=== PATIENT | male | born 1945 | race Hispanic/Latino ===

== ENCOUNTER 2018-09-14 08:21 | Emergency (ER) | payer MEDICARE, BC ==
[~2018-09-14] VITALS: Ht 165.1 cm; Wt 74.4 kg
--- OUTSIDE RECORDS SUMMARY | 2018-09-14 08:24 | XMS REPORT | Continuity of Care Document ---
Author Author [facility] magy [facility] Emergency Department Interface Address Unknown Phone Unavailable Problems Problem Status Onset Date Classification Date Reported Comments Source Chronic kidney disease, stage 3 10/05/2017 08/22/2018 [facility] [place] N18.3 - CHRONIC KIDNEY DISEASE, STAGE Active 09/28/2017 [facility] [place] Medications Medication Details Route Status Patient Instructions Ordering Provider Order Date Source Allergies, Adverse Reactions, Alerts Substance Category Reaction Severity Reaction type Status Date Reported Comments Source Immunizations Immunization Date Given Site Status Last Updated Comments Source Results Order Name Results Value Reference Range Date Interpretation Comments Source Retroperitoneal Complete US Retroperitoneal Complete US Exam: Bilateral renal ultrasound. Reason for Exam: N18.3 Chronic kidney disease, stage 3 (moderate) - N18.3 Chronic kidney disease, stage 3 (moderate) Comparison Exam: None Discussion: Multiplanar grayscale and color Doppler ultrasound of the kidneys, aorta, IVC, and urinary bladder. Right kidney: Size: 10.1 x 5.1 x 4.6 cm. Cortical thickness measures 1.4 cm. Hydronephrosis: None. Echogenicity: Unremarkable Calculi/Cysts/Masses: None. Left kidney: Size: 9.8 x 5.4 x 4.6 cm. Cortical thickness measures 1.2 cm. Hydronephrosis: None. Echogenicity: Unremarkable Calculi/Cysts/Masses: None. Abdominal aorta/Iliac arteries: Visualized portions are unremarkable. Inferior vena cava: Visualized portions are unremarkable Bladder: Unremarkable. Bilateral ureteral jets are identified. IMPRESSION: 1. Unremarkable renal ultrasound. 09/28/2017 - - Read by: Franco Herman MD Dictated Date/time: 09/28/17 15:18 Electronically Signed by: Franco Herman MD 09/28/17 15:28 FINAL REPORT [facility] [place] Vital Signs Vital Sign Value Date Comments Source Encounters Location Location Details Encounter Type Encounter Number Reason For Visit Attending Provider ADM Date DC Date Status Source [facility] Outpatient Imaging - [facility] Out[facility] Services [id number] Milind Rodriguez 09/28/2017 09/29/2017 RADHA Wayne Procedures Procedure Code Date Perfomer Comments Source
--- OUTSIDE RECORDS SUMMARY | 2018-09-14 08:24 | XMS REPORT ---
Author Author [facility] Address Unknown Phone Unavailable Care Team Providers Care Pattern Vault Clerk Name Role Phone Unavailable Unavailable Payers Payer Name Policy Type Policy Number Effective Date Expiration Date Problems This patient has no known problems. Allergies, Adverse Reactions, Alerts Allergy Name Allergy Type Status Severity Reaction(s) Onset Date Inactive Date Treating Clinician Comments No Known Allergies DA Active U 2015-10-09 00:00:00 Medications This patient has no known medications.
--- OUTSIDE RECORDS SUMMARY | 2018-09-14 08:24 | XMS REPORT | Summary of Care ---
Author Author [facility] [place] Organization [facility] [place] Address Unknown Phone Unavailable Encounter HQ Encntr_alias(FIN) [id number] Date(s): 09/28/17 - 09/28/17 [facility] [place] [address] [place], [place] [address] [phone] Encounter Diagnosis Chronic kidney disease, stage 3 (moderate) (Final) - 10/04/17 Discharge Disposition: Home or Self Care Attending Physician: Milind Rodriguez MD Vital Signs No data available for this section Problem List No data available for this section Allergies, Adverse Reactions, Alerts No data available for this section Medications No data available for this section Results No data available for this section Immunizations No data available for this section Procedures No data available for this section Social History No data available for this section Assessment and Plan No data available for this section
--- OUTSIDE RECORDS SUMMARY | 2018-09-14 08:24 | XMS REPORT | Summary of Care ---
Author Author [facility] [place] Organization [facility] [place] Address Unknown Phone Unavailable Encounter HQ Encntr_alias(FIN) [id number] Date(s): 09/28/17 - 09/28/17 [facility] [place] [address] [place], [place] [address] [phone] Encounter Diagnosis Chronic kidney disease, stage 3 [...]
[2018-09-14] MEDS ORDERED: ATORVASTATIN CA20 MG PO (08:37)
[2018-09-14] MEDS ORDERED: LOSARTAN PO (08:37)
[2018-09-14] MEDS ORDERED: CLOPIDOGREL75 MG PO (08:37)
[2018-09-14] MEDS ORDERED: ATENOLOL50 MG PO (08:37)
[2018-09-14] MEDS ORDERED: ASPRIN PO (08:37)
[2018-09-14] MEDS ORDERED: LEVOTHYROXINE50 MCG PO (08:37)
[2018-09-14 08:59] LABS: CLARITY,URINE HAZY (CLEAR); COLOR,URINE YELLOW (YELLOW)
[2018-09-14 09:00] LABS: KETONES,URINE NEGATIVE (NEGATIVE); LEUKOCYTE ESTERASE ,URINE 1+ (NEGATIVE); NITRITE,URINE NEGATIVE (NEGATIVE); PROTEIN,URINE DIPSTICK TRACE (NEGATIVE); URINE UROBILINOGEN 0.2 mg/dL (0.2 - 1)
[2018-09-14 09:01] LABS: BILIRUBIN,URINE NEGATIVE (NEGATIVE)
[2018-09-14 09:13] LABS: WBC,URINE (MAN) >50 /HPF (0-5)
[2018-09-14 09:15] LABS: BACTERIA,URINE FEW /HPF; EPITHELIAL CELLS,URINE FEW /LPF
[2018-09-14] MEDS ORDERED: CEFTRIAXONE SOD 1 GM VIAL IM NR (09:30)
== END 2018-09-14 09:48 | disposition home or self-care (01) ==
LOC: ER 08:21
DX: N30.01 Acute cystitis with hematuria (principal); I10 Essential (primary) hypertension; E78.5 Hyperlipidemia, unspecified; N40.0 Benign prostatic hyperplasia without lower urinary tract symptoms; Z86.73 Personal history of transient ischemic attack (TIA), and cerebral infarction without residual deficits; I25.10 Atherosclerotic heart disease of native coronary artery without angina pectoris
CPT/HCPCS: 81001; 87086; 87186; 99283; J0696

== ENCOUNTER 2020-03-22 11:08 | Emergency (ER) | payer MEDICARE, BC ==
[~2020-03-22] VITALS: Ht 165.1 cm; Wt 74.4 kg
[~2020-03-22 11:08] MED LIST: ASPRIN PO; ATENOLOL50 MG PO; ATORVASTATIN CA20 MG PO; CLOPIDOGREL75 MG PO; LEVOTHYROXINE50 MCG PO; LOSARTAN PO
--- OUTSIDE RECORDS SUMMARY | 2020-03-22 11:52 | XMS REPORT | Continuity of Care Document ---
Author Author Renetta Fredy Hernandez [facility] Address Unknown Phone Unavailable Care Team Providers Care Resident Care Coordinator Name Role Phone [employer] Unavailable Un available Problems Problem Status Onset Date Classification Date Reported Comments Source Chronic kidney disease, stage 3 (moderate) 10/05/2017 08/22/2018 [facility] [place] N18.3 - CHRONIC KIDNEY DISEASE, STAGE Active 09/28/2017 [facility] [place] Medications No Data Provided for This Section Allergies, Adverse Reactions, Alerts No Known Medication Allergies Immunizations No Data Provided for This Section Results No Data Provided for This Section Pathology Reports No Data Provided for This Section Diagnostic Reports Report Value Date Source Retroperitoneal Complete US Ex am: Bilateral renal ultrasound. Reason for Exam: N18.3 [...] identified. IMPRESSION: 1. Unremarkable renal ultrasound. 09/28/2017 [facility] [place] Consultation Notes No Data Provided for This Section Discharge Summaries No Data Provided for This Section History and Physicals No Data Provided for This Section Vital Signs No Data Provided for This Section Encounters Location Location Details Encounter Type Encounter Number Reason For Visit Attending Provider ADM Date DC Date Status Source [facility] Outpatient Imaging - [facility] Services [id number] Milind Rodriguez 09/28/2017 09/29/2017 [facility] Wayne Procedures No Data Provided for This Section Assessment and Plan No Data Provided for This Section Plan of Care No Data Provided for This Section Social History Social History Date Source No data available for this section 09/29/2017 JAYDON Wayne Family History No Data Provided for This Section Advance Directives No Data Provided for This Section Functional Status No Data Provided for This Section
--- OUTSIDE RECORDS SUMMARY | 2020-03-22 11:52 | XMS REPORT | Continuity of Care Document ---
Author Author [facility] t Organization [facility] Address [facility] [address] [place] [address] Phone Unavailable Care Team Providers Care Pulvi Mixer Operator Name Role Phone RASTA OAKLEY, CHENG PCP Karel Rodriguez Attphys Payers Payer Name Policy Type Policy Number Effective Date Expiration Date [facility] [employer] [place] [employer] [id number] 2015 00:00:0 0 [facility] Medicare A & B [id number] [facility] Problems Condition Name Condition Details Condition Category Status Onset Date Resolution Date Last Treatment Date Treating Clinician Comments Source N18.3 - CHRONIC KIDNEY DISEASE, STAGE N18.3 - CHRONIC KIDNEY DISEASE, STAGE Active 09/28/2017 JAYDON Wayne Diagnosis Active 2017-09-28 00:01:00 2017-09-28 11:09:00 Elizabeth Daniel CAD (coronary artery disease) CAD (coronary artery disease) Disease Active 2015-12-01 00:00:00 [facility] Nausea Nausea Disease Active 2015-11-26 00:00:00 [facility] Chronic kidney disease, stage 3 (moderate) Chronic kidney disease, stage 3 (moderate) 10/05/2017 08/22/2018 RAD[facility] [place] Problem 2017-10-05 04:28:48 2018-08-22 15:42:30 2018-08-22 15:42:30 [facility] Allergies, Adverse Reactions, Alerts Allergy Name Allergy Type Status Severity Reaction(s) Onset Date Inacti ve Date Treating Clinician Comments Source No Known Allergies DA Active U 2015-10-09 00:00:00 [facility] Social History Social Habit Start Date Stop Date Quantity Comments Source Sex Assigned At [facility] Social History 2017-09-29 05:59:00 2017-09-29 05:59:00 [facility] Smoking Status Start Date Stop Date Source Former smoker 2015-12-02 00:00:00 2015-12-02 00:00:00 [facility] Medications Ordered Medication Name Filled Medication Name Start Date Stop Da te Current Medication? Ordering Clinician Indication Dosage Frequency Signature (SIG) Comments Components Source prasugrel (EFFIENT) 10 mg Tab tablet 2015-12-02 00:00:00 Ye s 10mg QD Take 1 tablet (10 mg total) by mouth daily. [facility] pantoprazole (PROTONIX) 40 MG tablet 2015-11-27 00:00:00 Ye s 40mg QD Take 1 tablet (40 mg total) by mouth daily. [facility] fluticasone (FLONASE) 50 mcg/actuation nasal spray 2015-11 19:15:20 Yes 1{spray} QD 1 spray by Nasal route daily. [facility] ergocalciferol (ERGOCALCIFEROL) 50,000 unit capsule 11-24 19:15:20 Yes 70999A Q7D Take 50,000 Units by mouth once a week. [facility] levothyroxine (SYNTHROID, LEVOTHROID) 50 MCG tablet 11-24 19:15:20 Yes 50ug Take 50 mcg by mouth Every morning on an empty stomach. [facility] aspirin 81 MG EC tablet 2015-11-25 19:15:20 Yes 81mg QD Take 81 mg by mouth daily. [facility] pravastatin (PRAVACHOL) 40 MG tablet 2015-11-25 19:15:20 Ye s 40mg QD Take 40 mg by mouth daily. [facility] lisinopril (PRINIVIL,ZESTRIL) 5 MG tablet 2015-11-25 19:15:20 Yes 5mg QD Take 5 mg by mouth daily. [facility] metoprolol (LOPRESSOR) 25 MG tablet 2015-11-25 19:15:20 Yes 25mg Q.5D Take 25 mg by mouth 2 (two) times daily. [facility] nitroglycerin (NITROSTAT) 0.4 MG SL tablet 2015-11-25 19:15:[address] 0.4 mg under the tongue every 5 (f juana) minutes as needed for Chest pain Put 1 pill under tongue every 5min as needed for chest pain.No more than 3 doses in 15min.Call 911 if pain is unrelieved 5min after 1st dose . [facility] LORazepam (ATIVAN) 1 MG tablet 2015-10-14 00:00:00 Yes 1mg Take 1 mg by mouth as needed For anxiety. [facility] Asprin Asprin Yes 81 Daily [facility] Atenolol 50 Mg Tablet Atenolol 50 Mg Tablet Yes 12.5 Daily [facility] Atorvastatin Calcium 20 Mg Tablet Atorvastatin Calcium 20 Mg Tablet Yes 40 Bedtime [facility] Clopidogrel Bisulfate (Clopidogrel) 75 Mg Tablet Clopi dogrel Bisulfate (Clopidogrel) 75 Mg Tablet Yes 75 Daily [facility] Levothyroxine Sodium 50 Mcg Tablet Levothyroxine Sodium 50 Mcg Tablet Yes .005 Daily [facility] Losartan Losartan Yes 12.5 Daily [facility] Procedures This patient has no known procedures. Encounters Start Date/Time End Date/Time Encounter Type Admission Type [facility] Facility Care Department Encounter ID Source 2018-09-14 08:21:00 2018-09-14 08:21:00 Registered Emergency Room [facility] [id number] [facility] 2017-09-28 10:52:00 2017-09-28 23:59:00 Outpatient Zachary Rodriguez [facility] [id number] 2017-09-28 10:52:00 2017-09-28 23:59:00 Outpatient Zachary Rodriguez [facility] [id number] Results Test Description Test Time Test Comments Results Result Comments Source Urine WBC 2018-09-14 09:15:00 Test Item Urine WBC (test code = 5821-4) >50 0-5 [facility] [id number] 09:15:00* Test Item Value Reference Range Interpretation Comments Urine RBC (test code = 26529-2) 6-10 0-5 [facility] [id number] 09:15:00* Test Item Value Reference Range Interpretation Comments Urine Bacteria (test code = 68902-8) FEW NONE [facility] Epithelial [id number] 09:15:00 * Test Item Value Reference Range Interpretation Comments Urine Epithelial Cells (test code = 77486-0) FEW NONE [facility] [id number] 09:01:00* Test Item Value Reference Range Interpretation Comments Urine Color (test code = 5778-6) YELLOW YELLOW [facility] [id number] 09:01:00* Test Item Value Reference Range Interpretation Comments Urine Clarity (test code = 17293-8) HAZY CLEAR [facility] Specific [id number] 09:01:00 * Test Item Value Reference Range Interpretation Comments Urine Specific [place] (test code = 5811-5) 1.015 1.010-1.02 5 [facility] [id number] 09:01:00* Test Item Value Reference Range Interpretation Comments Urine pH (test code = 81511-3) 6.5 5-7 [facility] Leukocyte [id number] 09:01:00* Test Item Value Reference Range Interpretation Comments Urine Leukocyte Esterase (test code = 5799-2) 1+ NEGATIVE H [facility] [id number] 09:01:00* Test Item Value Reference Range Interpretation Comments Urine Nitrite (test code = 35448-8) NEGATIVE NEGATIVE [facility] [id number] 09:01:00* Test Item Value Reference Range Interpretation Comments Urine Protein (test code = 5804-0) TRACE NEGATIVE H [facility] Glucose (UA)2018-09-14 09:01:00* Test Item Value Reference Range Interpretation Comments Urine Glucose (UA) (test code = 2349-9) NEGATIVE NEGATIVE [facility] [id number] 09:01:00* Test Item Value Reference Range Interpretation Comments Urine Ketones (test code = 71051-3) NEGATIVE NEGATIVE [facility] [id number] 09:01:00* Test Item Value Reference Range Interpretation Comments Urine Urobilinogen (test code = 89233-1) 0.2 0.2-1 [facility] [id number] 09:01:00* Test Item Value Reference Range Interpretation Comments Urine Bilirubin (test code = 1978-6) NEGATIVE NEGATIVE [facility] [id number] 09:01:00* Test Item Value Reference Range Interpretation Comments Urine Blood (test code = 16118-8) TRACE NEGATIVE H [facility]2018-10-26 11:54:00 RUN DATE: 05/17/18 [place] PAGE 1 RUN TIME: 1155 Specimen Inqui ry RUN USER: INTERFACE PATIENT: [facility] ACCT #: [id number] LOC: TERRI U #: [id number] AGE/SX: 72/M ROOM: RE05/16/18REG DR: Parker Nicole MD : 47 BED: DIS: STATUS: DEP [facility] TLOC: SPEC #: [id number] RECD: 05/16/18 STATUS: LEBRON RE #: [id number] LEATHA: 05/16/[address] [facility] [address]: Parker Nicole MD ENTERED: 05/16/18 SP TYPE: LIPOMA OTHR DR: ORDERED: GROSS PROCEDURES: GROSS (05/17/18) TISSUES: SPERMATIC CORD, NOS - LIPOMA CLINICAL HISTORY COLLECTION DATE: 05/16/2018 RIGHT INGUINAL HERNIA FINAL DIAGNOSIS Spermatic cord lipoma, herniorrhaphy: MATURE ADIPOSE TISSUE WITH NO ATYPICAL FEATURES UNREMARKABLE SKELETAL MUSCLE FIBERS PRESENT NEGATIVE FOR MALIGNANCY RRB/sm D 97241 MACROSCOPIC The specimen is received in formalin, labeled with the patient's name and identified as "lipoma of spermatic cord". It consists of a fatty portion of tissue which is mostly line d by thin fibromembranous tissue and measures 7.7 X 1.5 X 0.7 cm. Samples of the specimen are submitted for microscopic examination in a single cassette. GROSS PERFORMED AT [facility] [address] [facility] [place] [address] (P)[phone] CONTINUED ON NEXT PAGE RUN DATE: 05/17/18 [facility] PAGE 2 RUN TIME: 1155 Specimen Inquiry RUN USER: INTERFACE SPEC #: [id number] PATIENT: [facility] #[id number] (Continued)- MICROSCOPIC MICROSCOPIC PERFORMED AT [facility] All of the stains, including any controls performed, stain appropriate ly. [facility] [address] [facility] [place] [address] (P) PERFORMING SITE Diagnosis performed at: [facility] [place] [address] [place] [address] Signed SIGNATURE ON FILE B Michel newsome 05/17/18 1154 END OF REPORT
--- OUTSIDE RECORDS SUMMARY | 2020-03-22 11:52 | XMS REPORT | Clinical Summary ---
Author Author [facility] Address Unknown Phone Unavailable Care Team Providers Care Exam Proctor Name Role Phone Georgia Zeferino PCP Allergies No Known Allergies Medications End Date Status Medication Sig Dispensed Refills Start Date Active fluticasone (FLONASE) 50 1 spray by 0 mcg/actuation nasal spray Nasal route daily. Active ergocalciferol Take 50,000 0 (ERGOCALCIFEROL) 50,000 Units by unit capsule mouth once a week. Active levothyroxine (SYNTHROID, Take 50 mcg 0 LEVOTHROID) 50 MCG tablet by mouth Every morning on an empty stomach. Active aspirin 81 MG EC tablet Take 81 mg by 0 mouth daily. Active pravastatin (PRAVACHOL) Take 40 mg by 0 40 MG tablet mouth daily. Active lisinopril Take 5 mg by 0 (PRINIVIL,ZESTRIL) 5 MG mouth daily. tablet Active metoprolol (LOPRESSOR) 25 Take 25 mg by 0 MG tablet mouth 2 (two) times daily. Active nitroglycerin (NITROSTAT) Place 0.4 mg 0 0.4 MG SL tablet under the tongue every 5 (five) minutes as needed for Chest pain Put 1 pill under tongue every 5min as needed for chest pain.No more than 3 doses in 15min.Call 911 if pain is unrelieved 5min after 1st dose . Active LORazepam (ATIVAN) 1 MG Take 1 mg by 0 tablet mouth as 6 needed For anxiety. Active pantoprazole (PROTONIX) Take 1 tablet 30 tablet 0 40 MG tablet (40 mg total) 6 by mouth daily. Active prasugrel (EFFIENT) 10 mg Take 1 tablet 90 tablet 3 Tab tablet (10 mg total) 6 by mouth daily. Active Problems Problem Noted Date CAD (coronary artery disease) 12/01/2015 Nausea 11/26/2015 Social History Date Tobacco Use Types Packs/Day Years Used Former Smoker Alcohol Use Drinks/Week oz/Week Comments No Sex Assigned at Date Recorded Not on file Industry Job Start Date Occupation Not on file Not on file Not on file Travel End Travel History Travel Start No recent travel history available. Last Filed Vital Signs Not on file Plan of Treatment Not on file Implants Device Identifier Shelf Expiration Date Model / Serial / L ot Implanted Type Area Manufactur er 09/16/2016 [id number] / / [id number] [employer] Implanted: Qty: 1 on 12/01/2015 [employer] 04/14/2016 [id number] / / [id number] [employer] Implanted: Qty: 1 on 12/01/2015 [employer] Results Not on fileafter 03/22/2019 Insurance Payer Benefit Subscriber ID Type Phone Address Plan / Group MEDICARE MEDICARE xxxxxxxxxxx Medicare PART A BLUE CROSS/BLUE SHIELD BCBS FED xxxxxxxxx PPO [address] [place] [phone] Advance Directives For more information, please contact: [facility] [address] [place] [address] Date Inactivated Comments Code Status Date Activated 12/02/2015 1:08 PM Full Code 12/01/2015 1:27 PM This code status was determined by: Patient 12/01/2015 1:27 PM Full Code 12/01/2015 7:02 AM This code status was determined by: Patient 11/26/2015 6:50 PM Full Code 11/26/2015 7:10 AM This code status was determined by: Patient
--- NOTE | 2020-03-22 12:05 | NUR ---
PATIENT BROUGHT BACK INTO TRIAGE TO BE EVALUATED BY DR. FRITZ. HE TOLD HIM THE ITCHING IS AROUND HIS SCROTUM AND HE LOWERED HIS SHORTS FOR DR. FRITZ TO EVALUATE. NO NOTED RASH
--- NOTE | 2020-03-22 12:45 | Emergency Department Note ---
History of Present Illnes History of Present Illness Chief Complaint: Abdominal Complaints History of Present Illness This is a 74 year old male X 2 YEARS SUPRAPUBIC PAIN, DISCOMFORT. STARTED AFTER RIGHT HERNIA REPAIR. THE AREA ALSO STARTED ITCHING WITHOUT A RASH AND HE HAS BEEN USING A PRESCRIBED CREAM (PT. DOES NOT KNOW WHAT IT IS). 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 Any updates have been documented here. Past Medical History Recent Fever: No Clinical Suspicion of Infectio: No New/Unexplained Change in Ment: No Past Medical History: Hypertension, TIA, Hypothyroidism, Hyperlipedemia Other Medical History: BPH Past Surgical History: Hernia Repair Other Surgery: X 2 CARDIAC STENTS BUNION Social History Smoking Cessation: Never Smoker Counseling Performed: No Alcohol Use: Social Any Illegal Drug Use: No TB Exposure/Symptoms: No Physically hurt or threatened: No Family History Family history of heart diseas: No Other Last Tetanus: OUT OF DATE Any Pre-Existing Lines (PICC,: No Review of Systems Review of Systems Constitutional: Reports no symptoms EENTM: Reports no symptoms Cardiovascular: Reports no symptoms Respiratory: Reports no symptoms Gastrointestinal: Reports as per HPI Genitourinary: Reports as per HPI Musculoskeletal: Reports no symptoms Integumentary: Reports no symptoms Neurological: Reports no symptoms Psychological: Reports no symptoms Endocrine: Reports no symptoms Hematological/Lymphatic: Reports no symptoms Physical Exam Related Data Allergies: Coded Allergies: No Known Allergies (Unverified , 09/14/18) Triage Vital Signs Vital Signs Date Time Temp Pulse Resp B/P (MAP) Pulse Ox O2 Delivery O2 Flow Rate FiO2 03/22/20 11:30 98.1 62 18 146/81 97 Room Air Vital signs reviewed: Yes Physical Exam CONSTITUTIONAL Constitutional: Present well-developed, Present well-nourished HENT HENT: Present normocephalic, Present atraumatic, Present oropharynx clear/moist, Present nose normal HENT L/R: Present left ext ear normal, Present right ext ear normal EYES Eyes: Reports PERRL, Reports conjunctivae normal NECK Neck: Present ROM normal PULMONARY Pulmonary: Present effort normal, Present breath sounds normal CARDIOVASCULAR Cardiovascular: Present regular rhythm, Present heart sounds normal, Present capillary refill normal, Present normal rate GASTROINTESTINAL Abdominal: Present soft, Present nontender, Present bowel sounds normal GENITOURINARY Genitourinary: Present penis normal (UNCIRCUMCISED), Present other (NO RASH, NO HERNIAS, NO TENDERNESS) SKIN Skin: Present warm, Present dry MUSCULOSKELETAL Musculoskeletal: Present ROM normal NEUROLOGICAL Neurological: Present alert, Present oriented x 3, Present no gross motor or se nsory deficits PSYCHOLOGICAL Psychological: Present mood/affect normal, Present judgement normal Assessment & Plan Medical Decision Making MDM CHRONIC PRURITIS AND DISCOMFORT Reassessment Reassessment DC WITH TERBINAFINE CREAM 1% BID X 14 DAYS, F/U PCP Assessment & Plan Final Impression: (1) Chronic pruritus Depart Disposition: HOME, SELF-CARE Last Vital Signs Date Time Temp Pulse Resp B/P (MAP) Pulse Ox O2 Delivery O2 Flow Rate FiO2 03/22/20 11:30 98.1 62 18 146/81 97 Room Air Home Meds Reported Medications [Asprin] No Conflict Check, 81 MG PO DAILY 09/14/18 Levothyroxine Sodium (LEVOTHYROXINE SODIUM) 50 Mcg Tablet, 0.005 MG PO DAILY, #30 TAB 09/14/18 Atorvastatin Calcium (ATORVASTATIN CALCIUM) 20 Mg Tablet, 40 MG PO HS, #30 TAB 09/14/18 [Losartan] No Conflict Check, 12.5 MG PO DAILY 09/14/18 Clopidogrel Bisulfate (CLOPIDOGREL) 75 Mg Tablet, 75 MG PO DAILY, #30 TAB 09/14/18 Atenolol (ATENOLOL) 50 Mg Tablet, 12.5 MG PO DAILY 09/14/18 RICHARD FRITZ MD Mar 22, 2020 12:45
--- NOTE | 2020-03-22 14:14 | NUR ---
PATIENT CALLED FOR D/C. NO ANSWER
== END 2020-03-22 14:49 | disposition home or self-care (01) ==
LOC: ER 11:15
DX: L29.9 Pruritus, unspecified (principal); R10.30 Lower abdominal pain, unspecified; I10 Essential (primary) hypertension; E78.5 Hyperlipidemia, unspecified; E03.9 Hypothyroidism, unspecified; Z95.5 Presence of coronary angioplasty implant and graft
CPT/HCPCS: 99282

== ENCOUNTER 2021-08-08 02:19 | Emergency (ER) | payer MEDICARE, BC ==
[~2021-08-08] VITALS: Ht 165.1 cm; Wt 74.4 kg
[2021-08-08] MEDS ORDERED: DONNATAL/LIDOCAINE/MAALOX 30 ML SUSP PO STA (02:43)
[2021-08-08] MEDS ORDERED: SODIUM CHLORIDE 0.9% 1000ML 1,000 ML IV STA (02:43)
[2021-08-08] MEDS ORDERED: ONDANSETRON HCL INJ 2MG/ML 2ML 2 MG/ML VIAL IV PRN (02:45)
[2021-08-08] MEDS ORDERED: MAGNESIUM/ALUMINUM/SIMETHICONE 30 ML UDC ONE (02:58)
[2021-08-08] MEDS ORDERED: LIDOCAINE VISC 2% SOLN 15 ML UDC ONE (02:58)
[2021-08-08] MEDS ORDERED: BELLADONNA ALK/PHENOBARBITAL 5 ML UDC ONE (02:58)
[2021-08-08 03:04] LABS: BASOPHILS # (AUTO) 0.1 (0.0-0.1); BASOPHILS % 0.9 % (0.0-1.0); EOSINOPHILS # (AUTO) 0.4 (0.0-0.4); EOSINOPHILS % 4.3 % (0.0-6.0); HEMATOCRIT 48.1 % (38.2-49.6); HEMOGLOBIN 15.7 g/dL (14.0-18.0); LYMPHOCYTES # (AUTO) 2.4 (1.0-3.2); LYMPHOCYTES % 27.5 % (18.0-39.1); MEAN CORPUSCULAR HEMOGLOBIN 30.1 pg (28-32); MEAN CORPUSCULAR HGB CONC 32.6 g/dL (31-35); MEAN CORPUSCULAR VOLUME 92.1 fL (81-99); MONOCYTES # (AUTO) 0.7 (0.2-0.8); MONOCYTES % 7.9 % (4.4-11.3); NEUTROPHILS # (AUTO) 5.1 (2.1-6.9); PLATELET COUNT 201 x10e3/uL (140-360); RED BLOOD COUNT 5.22 x10e6/uL (4.3-5.7); RED CELL DISTRIBUTION WIDTH 13.3 % (11.7-14.4)
[2021-08-08 03:08] LABS: CLARITY,URINE CLEAR (CLEAR); COLOR,URINE YELLOW (YELLOW); KETONES,URINE NEGATIVE (NEGATIVE); LEUKOCYTE ESTERASE ,URINE NEGATIVE (NEGATIVE); NITRITE,URINE NEGATIVE (NEGATIVE); PROTEIN,URINE DIPSTICK NEGATIVE (NEGATIVE); URINE UROBILINOGEN 0.2 mg/dL (0.2 - 1)
[2021-08-08 03:15] LABS: EPITHELIAL CELLS,URINE RARE /LPF; WBC,URINE (MAN) 0-5 /HPF (0-5)
[2021-08-08 03:23] LABS: ALBUMIN 4.3 g/dL (3.5-5.0); ALBUMIN/GLOBULIN RATIO 1.2 (0.8-2.0); ANION GAP 10.9 mmol/L (8-16); CALCIUM 9.4 mg/dL (8.4-10.2); CREATININE, SERUM 1.31 mg/dL (0.72-1.25); POTASSIUM 3.9 mmol/L (3.5-5.1)
[2021-08-08] MEDS ORDERED: SODIUM CHLORIDE 0.9% 50ML 50 ML ONE (03:59)
[2021-08-08] MEDS ORDERED: IOPAMIDOL 370 MG/ML 200 ML INFUS..BTL INJ ONE (03:59)
[2021-08-08] MEDS ORDERED: OMEPRAZOLE40 MG PO (04:30)
== END 2021-08-08 04:39 | disposition home or self-care (01) ==
LOC: ER 02:38
DX: R10.31 Right lower quadrant pain (principal); K29.70 Gastritis, unspecified, without bleeding; R11.0 Nausea; I10 Essential (primary) hypertension; E78.5 Hyperlipidemia, unspecified; E03.9 Hypothyroidism, unspecified; Z86.73 Personal history of transient ischemic attack (TIA), and cerebral infarction without residual deficits; Z95.5 Presence of coronary angioplasty implant and graft
CPT/HCPCS: 36415; 74177; 80053; 81001; 83690; 84484; 85025; 93005; 99284; C9113; J2405; J7030; Q9967

== ENCOUNTER 2022-11-25 21:44 | Emergency (ER) | payer MEDICARE, BC ==
[~2022-11-25] VITALS: Ht 165.1 cm; Wt 74.4 kg
[~2022-11-25 21:44] MED LIST changes: +OMEPRAZOLE40 MG PO
[2022-11-25] MEDS ORDERED: SODIUM CHLORIDE 0.9% 1000ML 1,000 ML ONE (21:59)
[2022-11-25] MEDS ORDERED: SODIUM CHLORIDE 0.9% 1000ML 1,000 ML IV ONE (22:00)
[2022-11-25 22:07] LABS: CLARITY,URINE CLOUDY (CLEAR); COLOR,URINE RED (YELLOW)
[2022-11-25 22:08] LABS: KETONES,URINE NEGATIVE (NEGATIVE); LEUKOCYTE ESTERASE ,URINE 2+ (NEGATIVE); NITRITE,URINE NEGATIVE (NEGATIVE); PROTEIN,URINE DIPSTICK >=300 (NEGATIVE); URINE UROBILINOGEN 1 mg/dL (0.2 - 1)
[2022-11-25 22:13] LABS: BASOPHILS # (AUTO) 0.1 (0.0-0.1); BASOPHILS % 0.5 % (0.0-1.0); EOSINOPHILS # (AUTO) 0.4 (0.0-0.4); EOSINOPHILS % 2.8 % (0.0-6.0); HEMATOCRIT 44.1 % (38.2-49.6); HEMOGLOBIN 14.9 g/dL (14.0-18.0); LYMPHOCYTES % 13.5 % (18.0-39.1); MEAN CORPUSCULAR HEMOGLOBIN 30.5 pg (28-32); MEAN CORPUSCULAR HGB CONC 33.8 g/dL (31-35); MEAN CORPUSCULAR VOLUME 90.4 fL (81-99); MONOCYTES # (AUTO) 1.1 (0.2-0.8); MONOCYTES % 7.4 % (4.4-11.3); NEUTROPHILS # (AUTO) 11.1 (2.1-6.9); NEUTROPHILS % 75.5 % (38.7-80.0); PLATELET COUNT 183 x10e3/uL (140-360); RED BLOOD COUNT 4.88 x10e6/uL (4.3-5.7); RED CELL DISTRIBUTION WIDTH 13.1 % (11.7-14.4)
[2022-11-25 22:15] LABS: BACTERIA,URINE FEW /HPF; EPITHELIAL CELLS,URINE FEW /LPF; RBC,URINE >50 /HPF (0-5)
[2022-11-25 22:25] LABS: ALBUMIN 4.4 g/dL (3.5-5.0); ALBUMIN/GLOBULIN RATIO 1.2 (0.8-2.0); CREATININE, SERUM 1.54 mg/dL (0.72-1.25)
[2022-11-25] MEDS ORDERED: CEFDINIR300 MG PO (23:42)
[2022-11-25 23:50] VITALS: BP 128/77
== END 2022-11-25 23:54 | disposition home or self-care (01) ==
LOC: ER 21:50
DX: R30.0 Dysuria (principal); N39.0 Urinary tract infection, site not specified; R31.9 Hematuria, unspecified; E78.5 Hyperlipidemia, unspecified; I10 Essential (primary) hypertension; E03.9 Hypothyroidism, unspecified; Z95.5 Presence of coronary angioplasty implant and graft; Z86.73 Personal history of transient ischemic attack (TIA), and cerebral infarction without residual deficits
CPT/HCPCS: 36415; 74176; 80053; 81001; 83605; 85025; 87040; 87086; 87186; 99284; J0696; J7030

== ENCOUNTER 2024-05-02 14:15 | Emergency (ER) | payer MEDICARE, BC ==
[~2024-05-02] VITALS: Ht 165.1 cm; Wt 68.9 kg
[~2024-05-02 14:15] MED LIST changes: +ATENOLOL25 MG PO; +AZITHROMYCIN250 MG PO; +CEFDINIR300 MG PO; +CRESTOR10 MG PO; +FINASTERIDE5 MG PO; +FLOMAX0.4 MG PO; +LOSARTAN POTASS25 MG PO; +MEDROL4 M2 PO; +NEXIUM40 MG PO; +PEPCID20 MG PO; +PREDNISONE20 MG PO; +SYNTHROID50 MCG PO; +SYNTHROID75 MCG PO; +TADALAFIL5 MG PO; +VENTOLIN HFA18 GM INH; +ZETIA10 MG PO
[2024-05-02 15:03] VITALS: PULSE 86; RESP 16; TEMP 98.4; O2SAT 100
[2024-05-02] MEDS ORDERED: LEVOCETIRIZINE D5 MG PO (15:25)
[2024-05-02] MEDS: DEXAMETHASONE SOD PHOS 10 MG/1 ML VIAL IM ONE (15:32)
== END 2024-05-02 15:35 | disposition home or self-care (01) ==
LOC: ER 14:39
DX: J30.2 Other seasonal allergic rhinitis (principal); I10 Essential (primary) hypertension; E78.5 Hyperlipidemia, unspecified; K21.9 Gastro-esophageal reflux disease without esophagitis; I25.10 Atherosclerotic heart disease of native coronary artery without angina pectoris; E03.9 Hypothyroidism, unspecified; Z86.73 Personal history of transient ischemic attack (TIA), and cerebral infarction without residual deficits; Z95.5 Presence of coronary angioplasty implant and graft
CPT/HCPCS: 83518; 87070; 99283; J1100

== ENCOUNTER 2024-06-18 06:43 | Emergency (ER) | payer MEDICARE, BC ==
[~2024-06-18] VITALS: Ht 165.1 cm; Wt 70.3 kg
[~2024-06-18 06:43] MED LIST changes: +LEVOCETIRIZINE D5 MG PO
[2024-06-18 06:45] VITALS: PULSE 88; RESP 16; TEMP 97.9; O2SAT 98
[2024-06-18] MEDS ORDERED: GOLYTELY SOLU4000 M1 PO (06:55)
== END 2024-06-18 07:10 | disposition home or self-care (01) ==
LOC: ER 06:53
DX: K59.00 Constipation, unspecified (principal); I12.9 Hypertensive chronic kidney disease with stage 1 through stage 4 chronic kidney disease, or unspecified chronic kidney disease; N18.9 Chronic kidney disease, unspecified; E03.9 Hypothyroidism, unspecified; J84.10 Pulmonary fibrosis, unspecified; Z95.5 Presence of coronary angioplasty implant and graft
CPT/HCPCS: 99282

== ENCOUNTER 2024-08-11 17:50 | Emergency (ER) | payer MEDICARE, BC ==
[~2024-08-11] VITALS: Ht 165.1 cm; Wt 65.8 kg
[~2024-08-11 17:50] MED LIST changes: +GOLYTELY SOLU4000 M1 PO
[2024-08-11 18:00] VITALS: PULSE 95; RESP 28; TEMP 98.8
[2024-08-11] MEDS: SODIUM CHLORIDE 0.9% 1000ML 1,000 ML IV STA (18:30)
[2024-08-11 18:38] LABS: BASOPHILS % 0.2 % (0.0-1.0); EOSINOPHILS % 0.7 % (0.0-6.0); HEMATOCRIT 36.6 % (38.2-49.6); HEMOGLOBIN 11.8 g/dL (14.0-18.0); LYMPHOCYTES # (AUTO) 0.4 (1.0-3.2); LYMPHOCYTES % 5.8 % (18.0-39.1); MEAN CORPUSCULAR HGB CONC 32.2 g/dL (31-35); MEAN CORPUSCULAR VOLUME 89.9 fL (81-99); MONOCYTES # (AUTO) 0.6 (0.2-0.8); MONOCYTES % 9.9 % (4.4-11.3); NEUTROPHILS % 82.9 % (38.7-80.0); PLATELET COUNT 240 x10e3/uL (140-360); RED BLOOD COUNT 4.07 x10e6/uL (4.3-5.7); RED CELL DISTRIBUTION WIDTH 12.7 % (11.7-14.4); WHITE BLOOD COUNT 6.06 x10e3/uL (4.8-10.8)
[2024-08-11 18:54] LABS: ALBUMIN 3.2 g/dL (3.5-5.0); ALBUMIN/GLOBULIN RATIO 0.8 (0.8-2.0); ANION GAP 17.7 mmol/L (8-16); BILIRUBIN,TOTAL 1.2 mg/dL (0.2-1.2); CALCIUM 9.5 mg/dL (8.4-10.2); CREATININE, SERUM 1.37 mg/dL (0.72-1.25); POTASSIUM 3.7 mmol/L (3.5-5.1)
[2024-08-11] MEDS ORDERED: IOPAMIDOL 370 MG/ML 100 ML INFUS..BTL INJ ONE (19:41)
[2024-08-11] MEDS ORDERED: ONDANSETRON ODT4 MG PO (20:29)
[2024-08-11] MEDS ORDERED: ULTRAM 50MG50 MG PO (20:29)
[2024-08-11 21:16] VITALS: BP 109/67; PULSE 69; RESP 18; TEMP 98.1; O2SAT 97
[2024-08-12 19:25] LABS: TROPONIN I 0.006 ng/mL (0-0.300)
== END 2024-08-11 20:45 | disposition home or self-care (01) ==
LOC: ER 17:59
DX: R53.1 Weakness (principal); R59.1 Generalized enlarged lymph nodes; E87.1 Hypo-osmolality and hyponatremia; D73.89 Other diseases of spleen; I12.9 Hypertensive chronic kidney disease with stage 1 through stage 4 chronic kidney disease, or unspecified chronic kidney disease; N18.9 Chronic kidney disease, unspecified; E03.9 Hypothyroidism, unspecified; J84.10 Pulmonary fibrosis, unspecified; Z95.5 Presence of coronary angioplasty implant and graft
CPT/HCPCS: 36415; 71045; 71260; 80053; 82550; 83690; 83880; 84484; 85025; 99284; J7030; Q9967